=== PATIENT | male | born 1970 | race African-American/Black ===

== ENCOUNTER 2023-04-01 12:20 | Emergency (ER) | payer OTHER ==
[~2023-04-01] VITALS: Ht 162.6 cm; Wt 72.6 kg
== END 2023-04-01 21:21 | disposition home or self-care (01) ==
LOC: ER 12:20
DX: I16.9 Hypertensive crisis, unspecified (principal); I10 Essential (primary) hypertension; E11.9 Type 2 diabetes mellitus without complications; Z20.822 Contact with and (suspected) exposure to COVID-19